=== PATIENT | female | born 1970 | race Two or more races ===

== ENCOUNTER 2017-02-25 17:11 | Emergency (ER) | payer MEDICAID ==
[~2017-02-25] VITALS: Ht 154.9 cm; Wt 68.0 kg
[2017-02-25 18:23] VITALS: BP 138/80
== END 2017-02-25 18:23 | disposition home or self-care (01) ==
LOC: ED 17:11
DX: S61.210A Laceration without foreign body of right index finger without damage to nail, initial encounter (principal); I10 Essential (primary) hypertension; Z88.0 Allergy status to penicillin; W25.XXXA Contact with sharp glass, initial encounter; Y93.89 Activity, other specified; Y92.89 Other specified places as the place of occurrence of the external cause; Y99.8 Other external cause status

== ENCOUNTER 2017-04-19 19:46 | Emergency (ER) | payer MEDICAID ==
[2017-04-19 21:18] LABS: BASOPHIL % 0.7 % (0-2); PLATELET COUNT 191 x10^3mcL (130-400); RED CELL DISTRIBUTION WIDTH 13.6 % (11.5-14.5)
[2017-04-19 21:26] LABS: CALCIUM 8.6 mg/dL (8.5-10.1); CARBON DIOXIDE 24.7 mmol/L (21-32); CHLORIDE SERUM 108 mmol/L (98-107); GFR1 > 60 mL/min; GLUCOSE SERUM 98 mg/dL (74-106); POTASSIUM SERUM 3.5 mmol/L (3.5-5.1); SODIUM SERUM 141 mmol/L (136-145)
[2017-04-19 21:30] LABS: ALBUMIN 3.6 g/dL (3.4-5.0); ALKALINE PHOSPHATASE 74 U/L (46-116); ALT/SGPT 11 U/L (14-59); AST/SGOT 14 U/L (15-37); BILIRUBIN TOTAL 0.2 mg/dL (0.20-1.00); LIPASE 273 IU/L (73-393); TOTAL PROTEIN, SERUM 8.2 g/dL (6.4-8.2)
[2017-04-19 23:34] VITALS: BP 126/78
== END 2017-04-19 23:34 | disposition home or self-care (01) ==
LOC: ED 19:46
PROVIDERS: Emergency Medicine
DX: R10.9 Unspecified abdominal pain (principal); Z88.0 Allergy status to penicillin; Z90.49 Acquired absence of other specified parts of digestive tract
CPT/HCPCS: J1885; Q0092

== ENCOUNTER 2017-08-21 16:54 | Emergency (ER) | payer MEDICAID ==
[~2017-08-21] VITALS: Ht 154.9 cm; Wt 62.1 kg
[2017-08-21 17:18] VITALS: Ht 154.9 cm; Wt 62.1 kg
[2017-08-21 19:21] LABS: BASOPHIL % 0.6 % (0-2); PLATELET COUNT 196 x10^3mcL (130-400); RED CELL DISTRIBUTION WIDTH 13.9 % (11.5-14.5)
[2017-08-21 19:29] LABS: CALCIUM 8.9 mg/dL (8.5-10.1); CARBON DIOXIDE 25.1 mmol/L (21-32); CHLORIDE SERUM 104 mmol/L (98-107); CREATININE SERUM 0.9 mg/dL (0.6-1.0); GFR1 > 60 mL/min; GLUCOSE SERUM 101 mg/dL (74-106); POTASSIUM SERUM 3.3 mmol/L (3.5-5.1); SODIUM SERUM 138 mmol/L (136-145)
[2017-08-21 19:34] LABS: ALKALINE PHOSPHATASE 59 U/L (46-116); ALT/SGPT 16 U/L (14-59); AST/SGOT 16 U/L (15-37); BILIRUBIN TOTAL 0.1 mg/dL (0.20-1.00); LIPASE 254 IU/L (73-393); TOTAL PROTEIN, SERUM 7.5 g/dL (6.4-8.2)
[2017-08-21 19:35] LABS: ALBUMIN 3.3 g/dL (3.4-5.0)
[2017-08-21 21:17] VITALS: BP 133/77
== END 2017-08-21 21:17 | disposition home or self-care (01) ==
LOC: ED 16:54
PROVIDERS: Emergency Medicine
DX: R10.31 Right lower quadrant pain (principal); Z88.0 Allergy status to penicillin
CPT/HCPCS: 36415; J1885; Q0092

== ENCOUNTER 2018-07-27 17:54 | Emergency (ER) | payer SELFPAY ==
[~2018-07-27] VITALS: Ht 154.9 cm; Wt 58.1 kg
[2018-07-27 18:20] VITALS: Ht 154.9 cm; Wt 58.1 kg
[2018-07-27 21:21] LABS: BASOPHIL % 0.4 % (0-2); PLATELET COUNT 210 x10^3mcL (130-400); RED CELL DISTRIBUTION WIDTH 13.5 % (11.5-14.5)
[2018-07-27 21:30] LABS: CALCIUM 9.1 mg/dL (8.5-10.1); CARBON DIOXIDE 26.8 mmol/L (21-32); CHLORIDE SERUM 105 mmol/L (98-107); GFR1 > 60 mL/min; GLUCOSE SERUM 101 mg/dL (74-106); POTASSIUM SERUM 3.5 mmol/L (3.5-5.1); SODIUM SERUM 141 mmol/L (136-145)
[2018-07-27 21:34] LABS: ALKALINE PHOSPHATASE 71 U/L (46-116); ALT/SGPT 14 U/L (14-59); AST/SGOT 15 U/L (15-37); BILIRUBIN TOTAL 0.24 mg/dL (0.20-1.00); LIPASE 235 IU/L (73-393); TOTAL PROTEIN, SERUM 7.8 g/dL (6.4-8.2)
[2018-07-27 21:35] LABS: ALBUMIN 3.3 g/dL (3.4-5.0)
[2018-07-27 22:26] VITALS: BP 115/81
== END 2018-07-27 22:26 | disposition home or self-care (01) ==
LOC: ED 17:54
PROVIDERS: Emergency Medicine
DX: R10.32 Left lower quadrant pain (principal)
CPT/HCPCS: 36415